=== PATIENT | female | born 1985 | race Caucasian/White ===

== ENCOUNTER 2018-08-23 17:36 | Outpatient (CLI) | payer OTHER ==
[2018-08-23] MEDS ORDERED: PRENATAL TABLE1 EAC1 PO (18:01)
== END 2018-08-24 08:53 | disposition home or self-care (01) ==
LOC: OBS/DEL 17:36
DX: O26.893 Other specified pregnancy related conditions, third trimester (principal); R10.2 Pelvic and perineal pain; R05 Cough; Z34.03 Encounter for supervision of normal first pregnancy, third trimester; O34.13 Maternal care for benign tumor of corpus uteri, third trimester; D25.2 Subserosal leiomyoma of uterus

== ENCOUNTER 2018-09-03 10:50 | Inpatient (IN) | payer OTHER ==
[~2018-09-03] VITALS: Ht 162.6 cm; Wt 64.9 kg
[~2018-09-03 10:50] MED LIST: PRENATAL TABLE1 EAC1 PO
== END 2018-09-16 09:50 | disposition home or self-care (01) | DRG 788 ==
LOC: O/R 09-13 06:10 → OB/GYN 09-13 08:30
PROVIDERS: ADMIT Specialist
PROC: 4A1HXCZ Monitoring of Products of Conception, Cardiac Rate, External Approach (ICD-10-PCS; 2018-09-13)
PROC: 0UB90ZZ Excision of Uterus, Open Approach (ICD-10-PCS; 2018-09-13)
PROC: 10D00Z1 Extraction of Products of Conception, Low, Open Approach (ICD-10-PCS; principal; 2018-09-13 10:15)
DX: O34.13 Maternal care for benign tumor of corpus uteri, third trimester (principal); D25.9 Leiomyoma of uterus, unspecified; Z3A.38 38 weeks gestation of pregnancy; Z37.0 Single live birth; Z22.330 Carrier of Group B streptococcus